=== PATIENT | male | born 1960 | race Caucasian/White ===

== ENCOUNTER 2019-03-27 13:44 | Emergency (ER) | payer SELFPAY ==
[~2019-03-27] VITALS: Ht 187.9 cm; Wt 115.9 kg
[~2019-03-27 13:44] MED LIST: SULF1TAB35 PO
[2019-03-27] MEDS ORDERED: TETANUS,DIPTH,PERTUSS P/F (BOOSTRIX) 0.5 ML VIAL IM ONE (14:15)
[2019-03-27] MEDS ORDERED: LIDOCAINE/EPI 2% 1:100,00 (XYLOCAINE) 20 ML VIAL INJ ONE (14:15)
--- NOTE | 2019-03-27 14:32 | ED Integumentary General ---
General Chief Complaint: Foreign Body Stated Complaint: FISH HOOK IN R CHEEK Nursing Triage Note: Pt amb to triage with c/o trouble, fish hook in Rt cheek. 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 Pt reports while being seen @ [facility], tetanus vaccine and lidocaine was adm to pt. Pt arrives with betadine to tissue surrounding fish hook. Source: patient Exam Limitations: no limitations History of Present Illness Date Seen by Provider: Mar 27, 2019 Time Seen by Provider: 14:32 Initial Comments 58-year-old male patient presents with complaints of a treble hook to the right cheek. Patient states he was seen at [facility], but states he was told they did not have the proper equipment to remove the fish hook. Tetanus shot was given while at [facility]. 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[employer]) Location: face (rt cheek) Allergies and Home Medications Allergies Coded Allergies: No Known Drug Allergies (Unverified , 11/22/14) Home Medications Sulfamethoxazole/Trimethoprim 1 Each Tablet, 1 TAB PO BID FOR INFECTION Prescribed by: CHRISTOPHER MANZANARES on 11/22/14 0840 Sulfamethoxazole/Trimethoprim 1 Each Tablet, 1 EACH PO BID Prescribed by: ERIN HESTER on 03/27/19 1449 Patient Home Medication List Home Medication List Reviewed: Yes Review of Systems Review of Systems Constitutional: no symptoms reported EENTM: see HPI; No ear discharge, No ear pain, No eye pain, No tearing, No mouth pain, No mouth swelling, No nose pain, No throat pain, No throat swelling Respiratory: no symptoms reported Cardiovascular: no symptoms reported Musculoskeletal: no symptoms reported Skin: see HPI Psychiatric/Neurological: No Symptoms Reported All Other Systems Reviewed Negative Unless Noted: Yes (Negative excepted noted.) Past Esziyis-Uxxhat-Vqyvrw Hx Past Med/Social Hx: Reviewed Nursing Past Med/Soc Hx Patient Social History Alcohol Use: Denies Use Recreational Drug Use: No Smoking Status: Never a Smoker 2nd Hand Smoke Exposure: No Recent Foreign Travel: No Contact w/Someone Who Travel: No Recent Infectious Disease Expo: No Immunizations Up To Date Tetanus Booster (TDap): Less than 5yrs (given at [facility] today) Seasonal Allergies Seasonal Allergies: Yes Past Medical History Surgeries: Yes Orthopedic Respiratory: No Cardiac: No Neurological: No Gastrointestinal: No Musculoskeletal: No Endocrine: No Cancer: No Psychosocial: No Integumentary: No Blood Disorders: No Family Medical History Reviewed Nursing Family Hx No Pertinent Family Hx Physical Exam Vital Signs Vital Signs - First Documented 03/27/19 13:50 Temp 36.6 Pulse 75 Resp 17 B/P (MAP) 145/70 (95) Pulse Ox 97 O2 Delivery Room Air Capillary Refill : Less Than 3 Seconds General Appearance: WD/WN, no apparent distress HEENT: PERRL/EOMI, pharynx normal, other (fish hook to the right cheek) Neck: supple, normal inspection Cardiovascular: regular rate, rhythm, no murmur Respiratory: lungs clear, normal breath sounds, no respiratory distress, no accessory muscle use Skin: normal color, warm/dry, other (fish hook noted to the right cheek) Skin Problem Location: face (rt cheek) Skin Problem Character: tenderness, other (foreign body to the right cheek) Procedures/Interventions I&D : Site: rt cheek I & D Procedure: betadine prep Progress 1 cc 2% lidocaine with epi injected intradermally at the site of the fish hook. needle drivers used to advance the fish hook deepak through the skin. pliers used to remove the deepak and the fish hook withdrawn without difficulty. Wounds cleansed with chlorhexidine and sterile saline. Wound covered with a Band-Aid. Blood loss minimal. Patient tolerated procedure well. Progress/Results/Core Measures Results/Orders My Orders Orders - ERIN HESTER Lidocaine/Epi 2% 1:100,000 (Xylocaine/Ep (03/27/19 14:15) Dipht,Pertuss(Acell),Tet Adult (Boostrix (03/27/19 14:15) Medications Given in ED Current Medications Medications Dose Ordered Sig/Pati Route Start Time Stop Time Status Last Admin Dose Admin Lidocaine/ Epinephrine 20 ml ONCE ONCE INJ 03/27/19 14:15 03/27/19 14:16 DC 03/27/19 14:30 20 ML Vital Signs/I&O 03/27/19 03/27/19 13:50 14:56 Temp 36.6 36.6 Pulse 75 70 Resp 17 16 B/P (MAP) 145/70 (95) 145/70 (95) Pulse Ox 97 98 O2 Delivery Room Air Blood Pressure Mean: 95 Departure Communication (Admissions) Patient seen, evaluated, and foreign-body removal performed. Plan for discharge to home. Impression Primary Impression: Foreign body in skin Disposition: 01 HOME, SELF-CARE Condition: Improved Departure-Patient Inst. Decision time for Depature: 14:47 Referrals: NO,LOCAL PHYSICIAN (PCP/Family) Primary Care Physician Patient Instructions: Foreign Body in Skin (DC) Add. Discharge Instructions: All discharge instructions reviewed with patient and/or family. Voiced understanding. Medications as instructed. Tylenol Extra Strength [id number] as directed for pain. Ibuprofen 800 mg by mouth every 8 hours as needed for pain. Cleanse the wound with antibacterial soap. Cover with a Band-Aid for 2-3 days. Apply triple antibiotic ointment twice daily for 3 days. Return to the emergency department for worsened symptoms or any other concerns. Follow up with your family practitioner if needed. Scripts Sulfamethoxazole/Trimethoprim (Bactrim Ds Tablet) 1 Each Tablet 1 EACH PO BID, #10 TAB 0 Refills Prov: ERIN HESTER 03/27/19 ERIN HESTER Mar 27, 2019 14:32
[2019-03-27] MEDS ORDERED: SULF1TAB35 PO (14:49)
[2019-03-27 14:56] VITALS: BP 145/70
== END 2019-03-27 14:56 | disposition home or self-care (01) ==
LOC: EDUNIT# 13:44 → ER 13:45
DX: S00.85XA Superficial foreign body of other part of head, initial encounter (principal); W45.8XXA Other foreign body or object entering through skin, initial encounter
CPT/HCPCS: 99282

== ENCOUNTER → 2023-04-29 | Outpatient (CLI) | payer OTHER ==
[~2023-04-29] MED LIST changes: +SULF1TAB38 PO
--- NOTE | 2023-04-29 12:49 | Diagnostic Imaging Report ---
MRI Shoulder RT WO Technique: Multiplanar, multisequence MR imaging of the right shoulder was performed without contrast. Comparison: None available. Indication: Right shoulder pain Findings: Rotator cuff: Full thickness and complete tears of the supraspinatus and infraspinatus are present. The proximal stumps are retracted to level of the glenohumeral joint and there is severe fatty atrophy of both the muscle bellies. Teres minor remains intact but has severe fatty atrophy of the muscle belly. Subscapularis has marked tendinopathy without superimposed tear. No fatty atrophy in the subscapularis. Glenoid labrum: There is a tear along the anterior inferior glenoid labrum with a small para labral cyst present. Long head of biceps: Medial subluxation long head of biceps with split longitudinal tear and tendinopathy present in the intracapsular segment. Bones and cartilage: Humeral head is normal in morphology without fracture or focal osseous lesion. 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 Moderate osteoarthritis AC joint. Soft tissues: Small glenohumeral joint effusion freely communicates with the subacromial and subdeltoid bursa via the full-thickness cuff tear. No MRI findings to suggest adhesive capsulitis. IMPRESSION: 1. 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 2. Subscapularis has marked tendinopathy without acute tear. 3. Medial subluxation, split longitudinal tear and tendinopathy of the long head of biceps. 4. Tear of the anterior-inferior glenoid labrum with a small para labral cyst. No denervation injury in the rotator cuff. Dictated by: Dictated on workstation # [id number]
== END ==
LOC: RAD 09:16
PROVIDERS: ATTEND Orthopaedic Surgery
DX: S43.421A Sprain of right rotator cuff capsule, initial encounter (principal); S43.001A Unspecified subluxation of right shoulder joint, initial encounter; S41.011A Laceration without foreign body of right shoulder, initial encounter; M25.811 Other specified joint disorders, right shoulder; X58.XXXA Exposure to other specified factors, initial encounter
CPT/HCPCS: 73221

== ENCOUNTER 2023-05-27 10:33 | Outpatient (RCR) | payer OTHER | END 2023-05-28 | disposition home or self-care (01) | PROVIDERS: ATTEND Orthopaedic Surgery | DX: S43.421D Sprain of right rotator cuff capsule, subsequent encounter (principal) ==